=== PATIENT | female | born 1970 | race Caucasian/White ===

== ENCOUNTER → 2020-06-28 | Day surgery (SDC) | payer OTHER ==
--- OUTSIDE RECORDS SUMMARY | 2020-06-28 12:04 | XMS ---
:1970 Author Organization [facility] Support Name Relationship Address Phone UE Unavailable Unavailable [employer]NETTE [employer] Unavailable [address] [place] [address] AGUILAR DO [address] [place] [address] Re-disclosure Warning The records that you are about to access may contain information from federally- assisted alcohol or drug abuse programs. If such information is present, then the following federally mandated warning applies: This information has been disclosed to you from records protected by federal confidentiality rules (42 CFR part 2). The federal rules prohibit you from making any further disclosure of this information unless further disclosure is expressly permitted by the written consent of the person to whom it pertains or as otherwise permitted by 42 CFR part 2. A general authorization for the release of medical or other information is NOT sufficient for this purpose. The Federal rules restrict any use of the information to criminally investigate or prosecute any alcohol or drug abuse patient.The records that you are about to access may contain highly sensitive health information, the redisclosure of which is protected by Article 27-F of the [facility] Public Health law. If you continue you may haveaccess to information: Regarding HIV / AIDS; Provided by facilities licensed or operated by the [facility] Office of Mental Health; or Provided by the [facility] Office for People With Developmental Disabilities. If such information is present, then the following [facility] mandated warning applies: This information has been disclosed to you from confidential records which are protected by state law. State law prohibits you from making any further disclosure of this information without the specific written consent of the person to whom it pertains, or as otherwise permitted by law. Any unauthorized further disclosure in violation of state law may result in a fine or shelter sentence or both. A general authorization for the release of medical or other information is NOT sufficient authorization for further disclosure. Encounters Encounter Providers Location Date Indications Data Source(s ) Outpatient [address] 02/22/2020 eCW1 ([facility] 12:00:00 AM [facility] [address] 09/15/2019 eCW1 ([facility] 12:00:00 AM [facility]) [address] 06/15/2019 eCW1 ([facility] 12:00:00 AM [facility] ) Insurance Providers Payer name Policy type Policy ID Covered Covered libertarian's Policy P thania / Coverage libertarian ID relationship to [place] Inf ormation type france LANETTE [id number] SP [id number] EXCHANGE [employer] [facility] [id number] SP [id number] [id number] HEALTH PLANS Problems, Conditions, and Diagnoses Code Display Name Description Problem Type Effective Data Sour ce(s) Dates E03.8 [id number] Other specified Problem 09/15/2019 eCW1 ([facility] hypothyroidism 12:00:00 AM [facility]) E03.8 Other specified Other specified Problem 09/15/2019 eCW1 ([facility] hyp[facility] hypothyroidism 12:00:00 AM [facility] ) Surgeries/Procedures Procedure Description Date Indications Data Source(s) ECG ROUTINE ECG W/LEAST 09/15/2019 eCW1 ([facility] 12 LDS W/I&R 12:00:[address] [facility] juan ) COLLECTION VENOUS BLOOD 09/15/2019 eCW1 ([facility] VENIPUNCTURE 12:00:00 AM [facility] Medical [facility] juan PC) HANDLG&/OR CONVEY OF 09/15/2019 eCW1 ([facility] SPEC FOR TR [facility] Results ID Date Data Source CBC W/DIFF 09/15/2019 12:00:00 AM EST eCW1 ([facility]) Name Value Range Interpretation Code Description Data Supporting Source(s) Document(s ) 7.4 3.8-10.8 WBC eCW1 ([facility]) 35.7 35.0-45.0 HEMATOCRIT eCW1 ([facility]) 12.3 11.7-15.5 HEMOGLOBIN eCW1 ([facility]) 3.80 3.80-5.10 RBC eCW1 ([facility]) 93.9 80.0-100.0 MCV eCW1 ([facility]) 230 140-400 PLATELET COUNT eCW1 ([facility]) 12.0 11.0-15.0 RDW eCW1 ([facility]) 32.4 27.0-33.0 MCH eCW1 ([facility]) 34.5 32.0-36.0 MCHC eCW1 ([facility]) 7.5 0-13 MONOCYTES,% eCW1 ([facility]) 55.4 38-80 TOTAL eCW1 ([facility] NEUTROPHILS,[facility]) 34.2 15-49 TOTAL eCW1 ([facility] LYMPHOCYTES,[facility]) 10.7 7.5-12.5 MPV eCW1 ([facility]) 2.2 0-8 EOSINOPHILS,% eCW1 ([facility]) 4100 [phone] NEUTROPHILS,ABSOL eCW1 ([facility]) [phone] LYMPHOCYTES,ABSOL eCW1 ([facility]) 0.7 0-2 BASOPHILS,% eCW1 ([facility]) 555 200-950 MONOCYTES,ABSOLUT eCW1 ([facility]) 163 15-500 EOSINOPHILS,ABSOL eCW1 ([facility]) 52 0-200 BASOPHILS,ABSOLUT eCW1 ([facility]) DIFFERENTIAL eCW1 ([facility]) Procedure Social History Code Duration Value Status Description Data Source(s ) Smoking 02/22/2020 12:00:00 Never Smoker completed Never Smoker e CW1 ([facility]) Vital Signs ID Date Data Source UNK Name Value Range Interpretation Code Description Data Source(s) Diastolic blood 83 mm[Hg] 83 mm[Hg] eCW1 ([facility] Systolic blood 127 mm[Hg] 127 mm[Hg] eCW1 ([facility]) Body temperature 98.1 [degF] 98.1 [degF] eCW1 ( [facility]) Heart rate 80 /min 80 /min eCW1 ([facility]) Body mass index 21.03 kg/m2 21.03 kg/m2 eCW1 (S aint (BMI) [Ratio] [facility]) Body weight 115 [lb_av] 115 [lb_av] eCW1 ([facility]) Body height [in_i] eCW1 ([facility]) Diastolic blood 66 mm[Hg] 66 mm[Hg] eCW1 (Eduin nt pressure [facility]) Systolic blood 105 mm[Hg] 105 mm[Hg] eCW1 (Nadine t pressure [facility]) Heart rate 68 /min 68 /min eCW1 ([facility]) Body mass index 21.03 kg/m2 21.03 kg/m2 eCW1 (S aint (BMI) [Ratio] [facility]) Body weight 115 [lb_av] 115 [lb_av] eCW1 ([facility]) Body height [in_us] eCW1 ([facility])
--- NOTE | 2020-06-29 17:21 | PATH ---
Surgical Pathology Report Patient Name: GLADIS DO [facility]. Rec. #: [id number] /Age/Gender: 1970 (Age: 50) / F Account: [id number] Location: [facility] Taken: 06/28/2020 Received: 06/28/2020 Reported: 06/29/2020 Physicians: Jonathon Schumacher M.D. Specimen(s) Received A: RIGHT BREAST WITH CALCIFICATIONS B: RIGHT BREAST WITHOUT CALCIFICATIONS Clinical History Nonpalpable lesion Final Diagnosis A. BREAST, RIGHT, WITH CALCIFICATIONS, STEREOTACTIC CORE BIOPSY: BENIGN BREAST PARENCHYMA WITH STROMAL FIBROSIS, MICROCYSTS, AND COLUMNAR CELL CHANGES WITH ASSOCIATED MICROCALCIFICATIONS. B. BREAST, RIGHT WITHOUT CALCIFICATIONS, STEREOTACTIC CORE BIOPSY: BENIGN BREAST PARENCHYMA WITH STROMAL FIBROSIS, MICROCYSTS, FOCAL SCLEROSING ADENOSIS, AND ASSOCIATED MICROCALCIFICATIONS. Electronically Signed Martina Valente M.D. Gross Description A. Received in formalin labeled "right breast with calcification," are 6 contreras-yellow, irregular to cylindrical portions of fibroadipose tissue ranging from 0.3-1.6 cm in length and averaging 0.4 cm in diameter. The specimens are submitted in toto in 2 cassettes. B. Received in formalin labeled "right breast without calcifications," are 6 contreras-yellow, irregular to cylindrical portions of fibroadipose tissue ranging from 0.8-1.5 cm in length and averaging 0.4 cm in diameter. The specimens are submitted in toto in 2 cassettes. Time to formalin fixation: 5 minutes Total formalin fixation time: Approximately 6 hours. 06/28/2020 saudi06/28/2020
== END | disposition home or self-care (01) ==
LOC: FMAMMOTONE 12:00
PROVIDERS: ATTEND Nurse Practitioner Family
PROC: 0HBT3ZX Excision of Right Breast, Percutaneous Approach, Diagnostic (ICD-10-PCS; principal; 2020-06-28)
DX: N60.11 Diffuse cystic mastopathy of right breast (principal); N60.31 Fibrosclerosis of right breast; N64.89 Other specified disorders of breast; R92.1 Mammographic calcification found on diagnostic imaging of breast
CPT/HCPCS: 19081; 76098-TC-FY; 88305-TC

== ENCOUNTER → 2021-06-07 | Day surgery (SDC) | payer OTHER | END | disposition home or self-care (01) | LOC: FMAMMOTONE 08:38 | PROVIDERS: ATTEND Obstetrics & Gynecology | PROC: 0HBU3ZX Excision of Left Breast, Percutaneous Approach, Diagnostic (ICD-10-PCS; principal; 2021-06-07) | DX: N60.32 Fibrosclerosis of left breast (principal); N64.89 Other specified disorders of breast; R92.1 Mammographic calcification found on diagnostic imaging of breast | CPT/HCPCS: 19081; 76098-TC-FY; 87899; 88305-TC; A4648 ==